=== PATIENT | female | born 1960 | race Two or more races ===

== ENCOUNTER 2024-08-12 14:36 | Inpatient (IN) | payer MEDICAID ==
[~2024-08-12] VITALS: Ht 154.9 cm; Wt 65.0 kg
--- NOTE | 2024-08-12 15:27 | DVH ---
EXAM: XY CHEST TWO VIEWS ROUTINE TECHNIQUE: Two radiographic views of the chest CLINICAL HISTORY: weakness COMPARISON: None Findings/Impression: Frontal and lateral chest radiographs demonstrate no acute osseous or superficial soft tissue abnorma lities. The trachea is midline. The cardiac silhouette and mediastinum are within normal limits. No pneumothorax, pleural effusions, or consolidations.
--- NOTE | 2024-08-12 15:30 | ED.PDOC ---
History of Present Illness HPI Comments 64 Y, with PMHX of asthma and arthrosclerosis, presents to the ED with CC of headache. Patient states that she has been having a headache with intermittent dizziness, palpitations, and vision loss for 2 weeks. Patient relays that her symptoms have gotten worse over the course of the week; and the heart palpi tations have been more frequent during the night. Patient denies any tobacco usage, ETOH, or illicit drugs. Patient denies, fever, chills, body aches, nasal congestion, or N/V/D. Chief Complaint: Headache Time Seen by MD: 15:00 Primary Care Provider: JU Reviewed Notes: Nurses Notes, Medications, Allergies Allergies: Coded Allergies: Codeine (Verified Allergy, Unknown, 08/12/24) Penicillins (Verified Allergy, Unknown, 08/12/24) Tramadol (Verified Allergy, Unknown, 08/12/24) Information Source: Patient Mode of Arrival: Ambulatory Severity: Mild Timing: Weeks Duration: Since onset Prehospital treatment: None Past Medical History PAST MEDICAL HISTORY: Asthma Surgical History: Denies all surgeries [employer] History: No Pertinent [employer] History Family History Family History: Unknown Social History Smoker: Non-Smoker Alcohol: Denies ETOH Use Drugs: Denies Drug Use Lives In: Home Constitutional: denies: chills, diaphoresis, fatigue, fever, malaise, sweats, weakness, others EENTM: reports: eye pain; denies: blurred vision, double vision, ear bleeding, ear discharge, ear drainage, ear pain, ear ringing, eye redness, hearing loss, mouth pain, mouth swelling, nasal discharge, nose bleeding, nose congestion, nose pain, photophobia, tearing, throat pain, throat swelling, voice changes, others Respiratory: denies: cough, hemoptysis, orthopnea, SOB at rest, shortness of breath, SOB with excertion, stridor, wheezing, others Cardiovascular: reports: palpitations; denies: chest pain, dizzy spells, diaphoresis, Dyspnea on exertion, edema, irregular heart beat, left arm pain, lightheadedness, PND, syncope, others Gastrointestinal: denies: abdomen distended, abdominal pain, blood streaked bowels, constipated, diarrhea, dysphagia, difficulty swallowing, hematemesis, melena, nausea, poor appetite, poor fluid intake, rectal bleeding, rectal pain, vomiting, others Genitourinary: denies: abnormal vagina bleeding, burning, dyspareunia, dysuria, flank pain, frequency, hematuria, incontinence, pain, , vagina discharge, urgency, others Neurological: reports: dizziness, headache; denies: fainting, left sided numbness, left sided weakness, numbness, paresthesia, pre-existing deficit, right sided numbness, right sided weakness, seizure, speech problems, tingling, tremors, weakness, others Musculoskeletal: denies: back pain, gout, joint pain, joint swelling, muscle pain, muscle stiffness, neck pain, others Integumetry: denies: bruises, change in color, change in hair/nails, dryness, laceration, lesions, lumps, rash, wounds, others Allergic/Immunocompromised: denies: Difficulty Healing, Frequent Infections, Hives, Itching, others Hematologic/Lymphatic: denies: anemia, blood clots, easy bleeding, easy bruising, swollen glands, others Endocrine: denies: excessive hunger, excessive sweating, excessive thirst, excessive urination, flushing, intolerance to cold, intolerance to heat, unexplained weight gain, unexplained weight loss, others Psychiatric: denies: anxiety, bipolar disorder, depression, hopeless, panic disorder, schizophrenia, sleepless, suicidal, others All Other Systems: Reviewed and Negative Physical Exam General Appearance: No Apparent Distress, Normal HEENT: Normal ENT Inspection, Pharynx Normal, TMs Normal Neck: Full Range of Motion, Non-Tender, Normal, Normal Inspection Respiratory: Chest Non-Tender, Lungs Clear, No Accessory Muscle Use, No Re spiratory Distress, Normal Breath Sounds Cardiovascular: No Edema, No JVD, No Murmur, No Gallop, Normal Peripheral Pulses, Regular Rate/Rhythm Breast Exam: Deferred Gastrointestinal: No Organomegaly, Non Tender, No Pulsatile Mass, Normal Bowel Sounds, Soft Genitalia: Deferred Pelvic: Deferred Rectal: Deferred Extremities: No calf tenderness, Normal capillary refill, Normal inspection, Normal range of motion, Non-tender, No pedal edema Musculoskeletal : Apperance: Normal Neurologic: Alert, inspection and testing supervisor II-XII nml as Tested, No Motor Deficits, Normal Affect, Normal Mood, No Sensory Deficits Cerebellar Function: Normal Reflexes: Normal Skin: Dry, Normal Color, Warm Lymphatic: No Adenopathy Was a procedure done? Was a procedure done?: No Differential Dx Considerations may include: STRESS, sleep deprivation, ETOH withdrawal X-Ray, Labs, Meds, VS Vital Signs Date Time Temp Pulse Resp B/P (MAP) Pulse Ox O2 Delivery O2 Flow Rate FiO2 08/12/24 14:45 98.3 86 20 145/89 (107) 97 Lab Test 08/12/24 16:15 08/12/24 15:10 Range/Units Troponin I High Sensitivity < 3 L 3 L </=34 ng/L White Blood Count 8.1 4.4-10.8 10^3/uL Red Blood Count 4.44 4.0-5.20 10^6/uL Hemoglobin 13.2 12.2-16.2 g/dL Hematocrit 39.8 36.0-46.0 % Mean Corpuscular Volume 89.8 80.0-100.0 fL Mean Corpuscular Hemoglobin 29.7 28.0-32.0 pg Mean Corpuscular Hemoglobin Concent 33.1 32.0-36.0 g/dL Red Cell Distribution Width 14.0 11.8-14.3 % Platelet Count 307 140-450 10^3/uL Mean Platelet Volume 7.6 6.9-10.8 fL Neutrophils (%) (Auto) 59.5 37.0-80.0 % Lymphocytes (%) (Auto) 26.5 10.0-50.0 % Monocytes (%) (Auto) 8.3 0.0-12.0 % Eosinophils (%) (Auto) 5.3 0.0-7.0 % Basophils (%) (Auto) 0.4 0.0-2.0 % Neutrophils # (Auto) 4.8 1.6-8.6 10 ^3/uL Lymphocytes # (Auto) 2.2 0.4-5.4 10 ^3/uL Monocytes # (Auto) 0.7 0-1.3 10 ^3/uL Eosinophils # (Auto) 0.4 0-0.8 10 ^3/uL Basophils # (Auto) 0 0-0.2 10 ^3/uL Nucleated Red Blood Cells 0.1 % Sodium Level 142 136-145 mmol/L Potassium Level 4.1 3.5-5.1 mmol/L Chloride Level 107 98-107 mmol/L Carbon Dioxide Level 29 20-31 mmol/L Anion Gap 6 5-15 Blood Urea Nitrogen 21 9-23 mg/dL Creatinine 0.79 0.550-1.02 mg/dL Glomerular Filtration Rate Calc 84 >90 mL/min BUN/Creatinine Ratio 26.6 H 10.0-20.0 Serum Glucose 90 74-106 mg/dL Calcium Level 10.2 8.7-10.4 mg/dL [facility] [id number] [place] [id number] Ph: [phone] DIAGNOSTIC IMAGING Diagnostic Imaging Report : [id number] Signed PATIENT: POLY QUICK ACCT: [id number] UNIT: [id number] : 1960 LOC: ER ROOM / BED: / AGE / SEX: 64 / F ADM STATUS: REG ER SERVICE 57 ORDERING PHYSICIAN: JOMAR RIDER MD PROCEDURE(s): CXR2 - CHEST TWO VIEWS ROUTINE REASON: weakness ORDER NUMBER(s): [id number], ACCESSION NUMBER(s): [id number] EXAM: XY CHEST TWO VIEWS ROUTINE TECHNIQUE: Two radiographic views of the chest CLINICAL HISTORY: weakness COMPARISON: None Findings/Impression: Frontal and lateral chest radiographs demonstrate no acute osseous or superficial soft tissue abnormalities. The trachea is midline. The cardiac silhouette and mediastinum are within normal limits. No pneumothorax, pleural effusions, or consolidations. ATED BY: DEIRDRE NAM DO DICTATED DATE/TIME: 08/12/24 152 SIGNED BY: DEIRDRE NAM DO SIGNED DATE/TIME: 08/12/24 1525 CC: Time of 1ST Reevaluation: 15:30 Reevaluation 1ST: Unchanged Patient Education/Counseling: Diagnosis, Treatment Family Education/Counseling: No Family Present Additional Information The following tests were ordered, and results were reviewed by me: CXR, EXG X3, TROPONIN X3, UA, CBC, CMP I reviewed and agreed with the following test results read by other providers: CXR I discussed treatment and results with medical personnel and: PATIENT Departure 1 Departure Time of Disposition: 17:33 (Patient was registered the same day under different name. Patient had a CT scan performed that was benign.Patient with dizziness near syncope and generally feeling unwell. We will admit patient for further workup) Impression: Primary Impression: Near syncope Additional Impression: Migraine Qualified Codes: G43.109 - Migraine with aura, not intractable, without status migrainosus Disposition: ADMITTED INPATIENT Admit to: Med Surg Condition: Serious Critical Care Note Critical Care Time?: No Stability Stability form required: No Heart Score Heart Score: Heart Score Response (Comments) Value History N/A 0 EKG N/A 0 Age N/A 0 Risk Factors N/A 0 Troponin N/A 0 Total 0 I personally scribed for JOMAR RIDER MD ([email or web address]) on 08/12/24 at 15:30. Electronically submitted by Ernestina Boudreaux ([email or web address]). I personally scribed for JOMAR RIDER MD ([email or web address]) on 08/12/24 at 15:45. Electronically submitted by Ernestina Boudreaux ([email or web address]). JOMAR RIDER MD Aug 12, 2024 15:30
[2024-08-12 15:37] LABS: Basophils # (auto) 0 10 ^3/uL (0-0.2); Basophils % (auto) 0.4 % (0.0-2.0); Eosinophils # (auto) 0.4 10 ^3/uL (0-0.8); Eosinophils % (auto) 5.3 % (0.0-7.0); Hematocrit 39.8 % (36.0-46.0); Hemoglobin 13.2 g/dL (12.2-16.2); Lymphocytes # (auto) 2.2 10 ^3/uL (0.4-5.4); Lymphocytes % (auto) 26.5 % (10.0-50.0); Mean Corpuscular Hemoglobin 29.7 pg (28.0-32.0); Mean Corpuscular Hgb Conc. 33.1 g/dL (32.0-36.0); Mean Corpuscular Volume 89.8 fL (80.0-100.0); Monocytes # (auto) 0.7 10 ^3/uL (0-1.3); Monocytes % (auto) 8.3 % (0.0-12.0); Neutrophils # (auto) 4.8 10 ^3/uL (1.6-8.6); Neutrophils % (auto) 59.5 % (37.0-80.0); Nucleated Red Blood Cells % 0.1 %; Platelet Count (auto) 307 10^3/uL (140-450); Red Blood Cells 4.44 10^6/uL (4.0-5.20); White Blood Cell 8.1 10^3/uL (4.4-10.8)
[2024-08-12 15:51] LABS: Chloride 107 mmol/L (98-107); Potassium 4.1 mmol/L (3.5-5.1); Sodium 142 mmol/L (136-145)
[2024-08-12 15:52] LABS: Anion Gap 6 (5-15); Carbon Dioxide 29 mmol/L (20-31)
[2024-08-12 15:53] LABS: Calcium 10.2 mg/dL (8.7-10.4)
[2024-08-12 15:58] LABS: BUN/Creatinine Ratio 26.6 (10.0-20.0); Blood Urea Nitrogen 21 mg/dL (9-23); Glucose 90 mg/dL (74-106)
--- NOTE | 2024-08-12 20:59 | DVHHPRES ---
History of Present Illness Resident Creating Document: BEN HARRISON RESIDENT History of Present Illness This is a 64 years old female with past medical history of bronchial asthma, aortic atherosclerosis, chronic low back pain presented to the ED with a chief complaint of pounding head, neck pain blurry vision and dizziness for 2 weeks. The patient she had diarrhea 2 weeks ago and it was loss for 3 days and her symptoms started after that. She felt dizzy when she was standing up from the sitting or lying position but did not mentioned any history of fall and also mentioned recent heart racing and unintentional 11 lb weight loss in last 1 month. She denies fever, night sweat, malaise, altered bowel habit, recent traveling or any abdominal pain or any sick contact. She is following primary care with [facility] and today she was referred from urgent care to the [facility] ED. She never had colonoscopy but mammography 2 years ago and it was normal and she had hysterectomy 2007 and stopped Pap test after that. Past Medical History Bronchial asthma, chronic low back pain, mild aortic atherosclerosis. Past Surgical History Hysterectomy in 2007, Lt rotator cuff surgery in 2011. Family History None Past Social History Nonsmoker, nonalcoholic and never tried any drugs. Review of Systems Constitutional: No: Fever, Chills, Sweats, Weakness, Malaise, Other Eyes: Pain, Vision change; No: Conjunctivae inflammation, Eyelid inflammation, Other, Redness ENT: No: Ear pain, Ear discharge, Nose pain, Nose discharge, Nose congestion, Mouth pain, Mouth swelling, Throat pain, Throat swelling, Other Respiratory: No: Cough, Dry, Shortness of breath, SOB with excertion, Wheezing, Hemoptysis, Pleuritic Pain, Sputum, Wheezing, Other Cardiovascular: Palpitations, Lt Headedness; No: Chest Pain, Orthopnea, Paroxysmal Noc. Dyspnea, Edema, Other Gastrointestinal: No: Nausea, Vomiting, Abdominal Pain, Diarrhea, Constipation, Melena, Hematochezia, Other Genitourinary: No Dysuria, No Frequency, No Incontinence, No Hematuria, No Retention, No Other Skin: No: Rash, Lesions, Jaundice, Bruising, Other Neurological: No: Weakness, Numbness, Incoordination, Change in speech, Confusion, Seizures, Other Allergies: Coded Allergies: Codeine (Verified Allergy, Unknown, 08/12/24) Penicillins (Verified Allergy, Unknown, 08/12/24) Tramadol (Verified Allergy, Unknown, 08/12/24) Medications Current Medications Medications Dose Ordered Sig/Spring Route Start Time Stop Time Status Last Admin Dose Admin Sodium Chloride 10 ml Q8HR IV 08/12/24 22:00 UNV Ondansetron HCl 4 mg Q4HP PRN IV 08/12/24 21:00 UNV Acetaminophen 650 mg Q6HP PRN PO 08/12/24 21:00 UNV Nitroglycerin 0.4 mg Q5MINP PRN SL 08/12/24 21:00 UNV Morphine Sulfate 2 mg Q30M PRN IV 08/12/24 21:00 UNV Exam Vital Signs Vital Signs Date Time Temp Pulse Resp B/P (MAP) Pulse Ox O2 Delivery O2 Flow Rate FiO2 08/12/24 20:30 98.0 77 16 141/73 (95) 98 98.0 Exam Physical examination: General Appearance: Alert, Oriented X3, Cooperative, No acute distress HEENT: Atraumatic, PERRLA, EOMI, Mucous membrane moist/pink Respiratory: Clear to auscultation, Normal air movement Cardiovascular: Regular rate, Normal S1, Normal S2, No murmurs, no chest wall tenderness Abdominal: Normal bowel sounds, Soft, No tenderness, No hepatospenomegaly, No masses Extremities: No clubbing, No cyanosis, No edema, Normal pulses, No tenderness/swelling Skin: No rashes, No breakdown, No significant lesion Neuro: Normal gait, Normal speech, Strength at 5/5 X4 ext, Normal tone, Sensation intact, grossly intact cranial nerves. Psych/Mental Status: Mental status NL, Mood NL Labs/Xrays Labs Test 08/12/24 16:15 08/12/24 15:10 Range/Units Troponin I High Sensitivity < 3 L </=34 ng/L White Blood Count 8.1 4.4-10.8 10^3/uL Red Blood Count 4.44 4.0-5.20 10^6/uL Hemoglobin 13.2 12.2-16.2 g/dL Hematocrit 39.8 36.0-46.0 % Mean Corpuscular Volume 89.8 80.0-100.0 fL Mean Corpuscular Hemoglobin 29.7 28.0-32.0 pg Mean Corpuscular Hemoglobin Concent 33.1 32.0-36.0 g/dL Red Cell Distribution Width 14.0 11.8-14.3 % Platelet Count 307 140-450 10^3/uL Mean Platelet Volume 7.6 6.9-10.8 fL Neutrophils (%) (Auto) 59.5 37.0-80.0 % Lymphocytes (%) (Auto) 26.5 10.0-50.0 % Monocytes (%) (Auto) 8.3 0.0-12.0 % Eosinophils (%) (Auto) 5.3 0.0-7.0 % Basophils (%) (Auto) 0.4 0.0-2.0 % Neutrophils # (Auto) 4.8 1.6-8.6 10 ^3/uL Lymphocytes # (Auto) 2.2 0.4-5.4 10 ^3/uL Monocytes # (Auto) 0.7 0-1.3 10 ^3/uL Eosinophils # (Auto) 0.4 0-0.8 10 ^3/uL Basophils # (Auto) 0 0-0.2 10 ^3/uL Nucleated Red Blood Cells 0.1 % Sodium Level 142 136-145 mmol/L Potassium Level 4.1 3.5-5.1 mmol/L Chloride Level 107 98-107 mmol/L Carbon Dioxide Level 29 20-31 mmol/L Anion Gap 6 5-15 Blood Urea Nitrogen 21 9-23 mg/dL Creatinine 0.79 0.550-1.02 mg/dL Glomerular Filtration Rate Calc 84 >90 mL/min BUN/Creatinine Ratio 26.6 H 10.0-20.0 Serum Glucose 90 74-106 mg/dL Calcium Level 10.2 8.7-10.4 mg/dL Assessment/Plan Assessment/Plan Assessment and plan: # Near syncopal event likely due to dehydration # Rule out intracranial pathology, aortic stenosis # Rule out malignancy, Hyperthyroidism - Ordered orthostatic vital, CT head without contrast, carotid Doppler and echo - Ordered TSH, FOBT, CEA, AFP and CA 19- 9 - Patient was given 1 L IV bolus - Monitor vitals closely. # Prediabetes, HbA1C 5.9 - Counseled the patient regarding low carb diet, lifestyle modification and physical exercise # Chronic bronchial asthma - Continue home meds. Goal of care discussed with the patient for more than 17 minutes full code Plan of treatment discussed with Dr. Hassan Plan discussed with: Patient, Other My Orders Orders - FARDOUS,BEN RESIDENT Procedure Category Date Status Time Admit ADMIT 08/12/24 Transmitted 20:47 Code Status CODE 08/12/24 Transmitted 20:47 Sodium Chloride Lock PHA 08/12/24 Logged (Saline Lock Ns) 22:00 Ondansetron Hcl PHA 08/12/24 Logged (Zofran) 21:00 Complete Blood Count LAB 08/13/24 Verified 04:00 Comprehensive LAB 08/13/24 Verified Metabolic Panel 04:00 Echo 2d Mode Cardiac US 08/12/24 Logged DOP 20:47 Carotid Duplx W Color US 08/12/24 Logged DOP 20:47 Acetaminophen Tablet PHA 08/12/24 Logged (Tylenol Tablet) 21:[address] [facility] 08/12/24 Logged Sublingual (Ntrostat 21:00 Morphine Sulfate PHA 08/12/24 Logged Injection 21:00 Oxygen By Nasal RT 08/12/24 Transmitted Cannula 20:47 Stat Ekg For Chest [facility] 08/12/24 In Process Pain 20:47 Notify Of Changes [facility] 08/12/24 In Process From Base 20:47 Warp Tester For [facility] 08/12/24 In Process 24 Hours 20:47 Emergency Dysrhythmia [facility] 08/12/24 In Process Protocol 20:47 Rhythm Strips Once [facility] 08/12/24 In Process Every Shift 20:[address] 08/12/24 Logged 20:51 Thyroid Stimulating LAB 08/12/24 Logged Hormone 20:51 Stool Occult Blood LAB 08/12/24 Logged 20:51 Carcinoembryonic LAB 08/12/24 Logged Antigen 20:51 Afp Serum Tumor Marker LAB 08/12/24 Logged 20:51 Carbohydrate Antigen LAB 08/12/24 Logged 19-9 Orthostatic Vital ED NURSING 08/12/24 Transmitted Signs Urinalysis LAB 08/12/24 Logged 20:53 Drug Screen LAB 08/12/24 Logged 20:53 Comprehensive LAB 08/12/24 Verified Hepatitis Panel 20:54 Date of Service: Aug 12, 2024 Billing Provider: MERISSA HASSAN MD Common Visit Codes: [id number] INP/OBS CARE (HIGH) BEN HARRISON RESIDENT Aug 12, 2024 20:59 MERISSA HASSAN MD Aug 13, 2024 09:28
[2024-08-12] MEDS ORDERED: NITROGLYCERIN 0.4 MG SL TAB SL PRN (21:00)
[2024-08-12] MEDS ORDERED: MORPHINE SULFATE INJ 2 MG/ml SYRG IV PRN (21:00)
--- NOTE | 2024-08-12 21:30 | DVH ---
EXAM: CT HEAD WITHOUT CONTRAST HISTORY: Dizziness COMPARISON: None TECHNIQUE: Axial images were obtained and reformatted in coronal and sagittal planes. All CT scans at this medical facility are performed using dose modulation techniques as appropriate t o a performed exam including the following: Automated exposure control was utilized; adjustment of th e MA and/or KV according to patient size; and use of iterative reconstruction technique. CT Dose: CTDI volume is 48.75 mGy. Dose-length product is 684.24 mGy*cm FINDINGS: Supratentorial Region: No evidence for large acute territorial ischemia. No intracranial hemorrhage is noted. Posterior Fossa: No acute abnormality. Brainstem: Unremarkable. Sellar/Suprasellar Region: Unremarkable. Ventricles, Cisterns, Sulci: Age-appropriate. Orbits: Unremarkable. Paranasal Sinuses: Trace fluid in the left sphenoid sinus. Mastoid Air Cells: Unremarkable. Vasculature: Unremarkable. Bones/Soft Tissues: No acute abnormality. Other: None. IMPRESSION: 1. No acute intracranial process. 2. Trace fluid in the left sphenoid sinus may reflect acute sinusitis.
[2024-08-13] MEDS: SODIUM CHLORIDE 0.9% 1,000 ML IV ONE (03:17)
[2024-08-13] MEDS: SODIUM CHLOR 0.9% PF (SALINE LOCK) 10ML VIAL/SYR IV SCH (03:18)
[2024-08-13 03:41] LABS: COVID19 ANTIGEN SOFIA FIA NEGATIVE (NEGATIVE); Rapid Influenza A Negative (Negative); Rapid Influenza B Negative (Negative)
[2024-08-13] MEDS: ACETAMINOPHEN 325 MG TAB PO PRN (04:35)
[2024-08-13 06:54] LABS: Alanine Aminotransferase 18 U/L (7-40); Albumin 4.2 g/dL (3.2-4.8); Alkaline Phosphatase 78 U/L (46-116); Anion Gap 7 (5-15); Aspartate Aminotransferase 16 U/L (13-40); BUN/Creatinine Ratio 20.3 (10.0-20.0); Blood Urea Nitrogen 16 mg/dL (9-23); Calcium 9.6 mg/dL (8.7-10.4); Carbon Dioxide 25 mmol/L (20-31); Glucose 102 mg/dL (74-106); Sodium 142 mmol/L (136-145)
[2024-08-13 06:55] LABS: Bilirubin, Total 0.5 mg/dL (0.2-1.0); Total Protein 6.8 g/dL (5.7-8.2)
[2024-08-13 06:59] LABS: Chloride 110 mmol/L (98-107); Potassium 3.5 mmol/L (3.5-5.1)
[2024-08-13 07:04] LABS: Basophils # (auto) 0.1 10 ^3/uL (0-0.2); Basophils % (auto) 0.6 % (0.0-2.0); Eosinophils # (auto) 0.4 10 ^3/uL (0-0.8); Eosinophils % (auto) 4.5 % (0.0-7.0); Hematocrit 38.7 % (36.0-46.0); Hemoglobin 12.8 g/dL (12.2-16.2); Lymphocytes # (auto) 2.8 10 ^3/uL (0.4-5.4); Lymphocytes % (auto) 30.5 % (10.0-50.0); Mean Corpuscular Hemoglobin 30.3 pg (28.0-32.0); Monocytes # (auto) 0.8 10 ^3/uL (0-1.3); Monocytes % (auto) 8.6 % (0.0-12.0); Neutrophils # (auto) 5.1 10 ^3/uL (1.6-8.6); Neutrophils % (auto) 55.8 % (37.0-80.0); Nucleated Red Blood Cells % 0.1 %; Platelet Count (auto) 280 10^3/uL (140-450); Red Blood Cells 4.21 10^6/uL (4.0-5.20); White Blood Cell 9.2 10^3/uL (4.4-10.8)
[2024-08-13 07:57] LABS: Urine Bacteria None Seen /hpf (None Seen)
[2024-08-13 08:00] VITALS: PULSE 62; RESP 17; O2SAT 97
[2024-08-13 08:21] LABS: Amphetamine Screen, Urine Neg (NEGATIVE); Barbiturate Scree,Urine Neg (NEGATIVE); Benzodiazephine Screen, Urine Neg (NEGATIVE); Cannabinoid Screen, Urine Neg (NEGATIVE); Cocaine Screen, Urine Neg (NEGATIVE); Opiate Scree,Urine Neg (NEGATIVE); Phencyclidine Screen, Urine Neg (NEGATIVE)
[2024-08-13] MEDS: GASTROGRAFIN 30 ML SOL ONE (08:22)
[2024-08-13 08:23] LABS: Urine Blood Negative /uL (Negative); Urine Clarity Clear (Clear); Urine Color Light-Yellow (Yellow); Urine Mucus FEW (None Seen); Urine Protein, UAD Negative (Negative); Urine Specific Gravity 1.018 (1.001-1.035); Urine Urobilinogen Normal (Negative); Urine WBC 2 /hpf (0 - 5); Urine pH 6.5 (5.0-9.0)
[2024-08-13] MEDS: ONDANSETRON HCL 4 MG/2 ML VIAL IV PRN (09:01)
[2024-08-13] MEDS: KETOROLAC TROMETH 30 MG/ML 1ML VIAL IV ONE ×2 (09:01→15:29)
[2024-08-13] MEDS: PANTOPRAZOLE 40 MG TAB PO ONE (09:02)
--- NOTE | 2024-08-13 10:02 | DVH ---
Carotid Duplex Date: 08/13/2024 08:46 AM Clinical History: Dizziness Comparison: None Technique: Duplex Doppler evaluation of the extracranial carotid and vertebral arteries including color Doppler and spectral/pulsed waveform analysis was performed. Findings: RIGHT SIDE: The peak systolic velocities are 81 cm/s in the distal CCA and 108 cm/s in the proximal ICA.The ICA/C CA ratio is 1.3. The external carotid artery is patent with peak systolic velocity of 82 cm/s proximally. There is appropriate antegrade flow in the right vertebral artery. LEFT SIDE: The peak systolic velocities are 72 cm/s in the distal CCA and 111 cm/s in the proximal ICA.. The IC A/CCA ratio is 1.5. The external carotid artery is patent with peak systolic velocity of 54 cm/s proximally. There is appropriate antegrade flow in the left vertebral artery. IMPRESSION: No hemodynamically significant stenosis noted in the right carotid system. No hemodynamically significant stenosis noted in the left carotid system. Reference: Radiology 2003; 229:[id number]
[2024-08-13] MEDS: IOHEXOL 300 MG/ML 100ML BOTTLE IJ ONE (10:23)
--- NOTE | 2024-08-13 10:59 | DVH ---
Exam: CT CT CHST AB PLV W CON-ORAL IV History: unexplained wt loss/ RESIDENT WANTS ORAL AND IV CON Comparison Study: None available at time of dictation. Technique: Multidetector spiral CT of the chest, abdomen and pelvis was performed from lower neck to pubic symphysis. 100 cc Omni 300 intravenous contrast was administered during this examination. Port al venous imaging was obtained. Axial, coronal and sagittal multiplanar reformats were performed by the technologist on a separate workstation. Radiation Dose : Chest/Abdomen/Pelvis: CTDIvol 8 mGy, DLP 543.31 mGy*cm. Findings: Lower neck: Normal thyroid. Lungs: No focal consolidation, pleural effusion or pneumothorax. Heart/Vascular Structures: Normal heart size. No pericardial effusion. Lymph Nodes: No adenopathy Pleura: No pleural effusion or significant pneumothorax. Liver: Few subcentimeter hepatic cysts. Gallbladder and biliary Tree: Unremarkable Spleen: Unremarkable Pancreas: The pancreas is normal in appearance without focal lesions or abnormal enhancement. Adrenal Glands: Unremarkable Kidneys: Kidneys demonstrate normal symmetric enhancement without focal lesions, calculi or hydroneph rosis. Bladder: Unremarkable Bowel: The stomach is grossly normal in appearance. Small bowel and colon are normal in caliber and d istribution. The appendix is not visualized; however, no secondary findings of acute appendicitis id entified. Ascites: Absent Lymphadenopathy: No mesenteric, retroperitoneal or periportal lymphadenopathy. Abdominal wall and Mesentery: Unremarkable. Vasculature: The visualized abdominal aorta is normal in size and caliber. Abdominal and pelvic vess els demonstrate normal enhancement. Pelvic Organs: The uterus is surgically absent. Musculoskeletal: Grade 1 anterolisthesis of L4 on L5. IMPRESSION: 1. No acute findings involving the chest, abdomen or pelvis. Few tiny hepatic cysts. HS:Y
[2024-08-13] MEDS ORDERED: AUG875T PO (15:29)
[2024-08-13 15:40] VITALS: BP 138/66; PULSE 66; PULSE 68; RESP 16; TEMP 97.8; O2SAT 100; O2SAT 97
[2024-08-13 16:00] VITALS: BP 146/78; PULSE 76; RESP 20; TEMP 97.9; O2SAT 97
--- NOTE | 2024-08-13 18:52 | DVHDSRES ---
Discharge Summary Date of Admission Resident Creating Document: BEN HARRISON RESIDENT Aug 12, 2024 at 20:47 Date of Discharge: Aug 13, 2024 Admitting Diagnosis Headache Labs/Diagnostic Data: Laboratory Results Test 08/13/24 07:45 08/13/24 06:00 08/13/24 03:02 08/12/24 21:00 Urine Color Light-yellow (Yellow) Urine Clarity Clear (Clear) Urine pH 6.5 (5.0-9.0) Urine Specific [place] 1.018 (1.001-1.035) Urine Protein Negative (Negative) Urine Ketones Negative (Negative) Urine Blood Negative /uL (Negative) Urine Nitrite Negative (Negative) Urine Bilirubin Negative (Negative) Urine Urobilinogen Normal mg/dL (Negative) Urine Leukocyte Esterase 1+ /uL (Negative) Urine RBC 1 /hpf (0 - 4) Urine WBC 2 /hpf (0 - 5) Urine Squamous Epithelial Cells Few /hpf (<5) Urine Bacteria None seen /hpf (None Seen) Urine Mucus Few (None Seen) Urine Glucose 2+ mg/dL (Normal) Urine Opiates Screen Neg (NEGATIVE) Urine Fentanyl Screen Neg (NEGATIVE) Urine Barbiturates Screen Neg (NEGATIVE) Urine Phencyclidine Screen Neg (NEGATIVE) Urine Amphetamines Screen Neg (NEGATIVE) Urine Benzodiazepines Screen Neg (NEGATIVE) Urine Cocaine Screen Neg (NEGATIVE) Urine Cannabinoids Screen Neg (NEGATIVE) White Blood Count 9.2 10^3/uL (4.4-10.8) Red Blood Count 4.21 10^6/uL (4.0-5.20) Hemoglobin 12.8 g/dL (12.2-16.2) Hematocrit 38.7 % (36.0-46.0) Mean Corpuscular Volume 92.0 fL (80.0-100.0) Mean Corpuscular Hemoglobin 30.3 pg (28.0-32.0) Mean Corpuscular Hemoglobin Concent 33.0 g/dL (32.0-36.0) Red Cell Distribution Width 14.0 % (11.8-14.3) Platelet Count 280 10^3/uL (140-450) Mean Platelet Volume 7.7 fL (6.9-10.8) Neutrophils (%) (Auto) 55.8 % (37.0-80.0) Lymphocytes (%) (Auto) 30.5 % (10.0-50.0) Monocytes (%) (Auto) 8.6 % (0.0-12.0) Eosinophils (%) (Auto) 4.5 % (0.0-7.0) Basophils (%) (Auto) 0.6 % (0.0-2.0) Neutrophils # (Auto) 5.1 10 ^3/uL (1.6-8.6) Lymphocytes # (Auto) 2.8 10 ^3/uL (0.4-5.4) Monocytes # (Auto) 0.8 10 ^3/uL (0-1.3) Eosinophils # (Auto) 0.4 10 ^3/uL (0-0.8) Basophils # (Auto) 0.1 10 ^3/uL (0-0.2) Nucleated Red Blood Cells 0.1 % Sodium Level 142 mmol/L (136-145) Potassium Level 3.5 mmol/L (3.5-5.1) Chloride Level 110 mmol/L (98-107) Carbon Dioxide Level 25 mmol/L (20-31) Anion Gap 7 (5-15) Blood Urea Nitrogen 16 mg/dL (9-23) Creatinine 0.79 mg/dL (0.550-1.02) Glomerular Filtration Rate Calc 84 mL/min (>90) BUN/Creatinine Ratio 20.3 (10.0-20.0) Serum Glucose 102 mg/dL (74-106) Calcium Level 9.6 mg/dL (8.7-10.4) Total Bilirubin 0.5 mg/dL (0.2-1.0) Aspartate Amino Transferase (AST) 16 U/L (13-40) Alanine Aminotransferase (ALT) 18 U/L (7-40) Alkaline Phosphatase 78 U/L (46-116) Total Protein 6.8 g/dL (5.7-8.2) Albumin 4.2 g/dL (3.2-4.8) Influenza Type A Antigen Negative (Negative) Influenza Type B Antigen Negative (Negative) SARS-CoV-2 Antigen (Rapid) Negative (NEGATIVE) Hemoglobin A1c 5.9 % A1C (<5.7) B-Type Natriuretic Peptide 14.88 pg/mL (0-100) Carcinoembryonic Antigen 1.00 ng/mL (<=5.0) Thyroid Stimulating Hormone (TSH) 0.69 uIU/mL (0.55-4.78) HIV (1&2) Antibody Negative (Negative) Test 08/12/24 16:15 Troponin I High Sensitivity < 3 ng/L (</=34) Other Laboratory Tests 08/13/24 06:00 Brief Hx & Hospital Course: This is a 64 years old female with past medical history of bronchial asthma, aortic atherosclerosis, chronic low back pain presented to the ED with a chief complaint of pounding head, neck pain blurry vision and dizziness for 2 weeks. The patient she had diarrhea 2 weeks ago and it was loss for 3 days and her symptoms started after that. She felt dizzy when she was standing up from the sitting or lying position but did not mentioned any history of fall and also mentioned recent heart racing and unintentional 11 lb weight loss in last 1 month. She denies fever, night sweat, malaise, altered bowel habit, recent traveling or any abdominal pain or any sick contact. She is following primary care with [facility] and today she was referred from urgent care to the [facility] ED. She never had colonoscopy but mammography 2 years ago and it was normal and she had hysterectomy 2007 and stopped Pap test after that. Hospital course: CXR showed no acute osseous or superficial soft tissue abnormalities. Head CT showed no acute intracranial process, trace fluid in the left sphenoid sinus may reflect acute sinusitis. Carotid ultrasound showed no hemodynamically significant stenosis in the right or left carotid systems. CT chest, abdomen and pelvis with IV and oral contrast showed no acute findings involving the chest, abdomen or pelvis. Few tiny hepatic cysts. CBC and BMP was unremarkable, COVID, influenza and HIV were also negative. On the day of discharge, patient appeared well and had stable vital signs. Patient was instructed to follow up with her PCP at her earliest convenience. Her hospital course was uncomplicated. Patient was sent Augmentin 875 mg b.i.d. for 7 days for her acute sinusitis. General Appearance: Alert, Oriented X3, Cooperative, No acute distress HEENT: Atraumatic, PERRLA, EOMI, Mucous membrane moist/pink Respiratory: Clear to auscultation, Normal air movement Cardiovascular: Regular rate, Normal S1, Normal S2, No murmurs, no chest wall tenderness Abdominal: Normal bowel sounds, Soft, No tenderness, No hepatospenomegaly, No masses Extremities: No clubbing, No cyanosis, No edema, Normal pulses, No tenderness/swelling Skin: No rashes, No breakdown, No significant lesion Neuro: Normal gait, Normal speech, Strength at 5/5 X4 ext, Normal tone, Sensation intact, grossly intact cranial nerves. Psych/Mental Status: Mental status NL, Mood NL Condition at Discharge: Good Final Diagnosis/Problems List acute sinusitis migraine ruled out near syncope personal hx of cervical cancer, s/p hystrectomy (2007) asthma, currently not in exacerbation Discharge Disposition: Home Discharge Instruct/Medications Diet: Cardiac 2g Na,low cholest Activity: No Restrictions, As Tolerated Follow Up/Referral: please follow up with pcp in 1-2 weeks Medications: augmentin 875mg twice a day for 7 days Discharge Statement: "Patient was advised to return to the ER or call 911 if any headaches, dizziness, shortness of breath, chest pain, abdominal pain, bleeding, fevers, or worsening of medical condition. Patient was counseled about treatment plan, medications, possible side effects, patientverbalized understanding. All questions were answered to the best of my ability. This discharge took greater then 30 minutes in planning, reviewing documentation, counseling the patient, and discussing with other team members." ASSESSMENT ASSESSMENT Assessment acute sinusitis migraine ruled out near syncope personal hx of cervical cancer, s/p hystrectomy (2007) asthma, currently not in exacerbation Date of Service: Aug 13, 2024 Billing Provider: JW GONZALEZ MD Common Visit Codes: 95312-DAH/OBS DISCH DAY >30min Coding Comment Comment Attending Attestation I saw and evaluated the patient. I reviewed the residents note and agree with findings and plan as documented in the residents note except as documented below. STEPHON NIX RESIDENT Aug 13, 2024 18:52 JW GONZALEZ MD Aug 14, 2024 08:31
[2024-08-13 20:00] VITALS: PULSE 66; RESP 18; O2SAT 97
[2024-08-13 21:00] VITALS: BP 122/58; PULSE 68; RESP 18; TEMP 98.2; O2SAT 97
[2024-08-14 01:00] VITALS: BP 118/61; PULSE 62; RESP 17; TEMP 98; O2SAT 96
[2024-08-14 05:00] VITALS: BP 114/53; PULSE 78; RESP 18; TEMP 97.7; O2SAT 97
[2024-08-14] MEDS: PANTOPRAZOLE 40 MG TAB PO SCH (05:42)
[2024-08-14 07:54] VITALS: BP 114/53; PULSE 78; RESP 18; TEMP 97.7; O2SAT 97
[2024-08-14 08:05] VITALS: PULSE 58; RESP 20; O2SAT 98
[2024-08-14 08:34] LABS: Hepatitis B Surface Antigen Negative (Negative)
[2024-08-14 08:53] VITALS: BP 150/71; PULSE 58; RESP 20; TEMP 97.9; O2SAT 98
[2024-08-14 08:56] VITALS: BP 150/71; PULSE 58; RESP 20; TEMP 97.9; O2SAT 98
[2024-08-14 08:57] LABS: Hepatitis B Core Total AB Negative (Negative)
[2024-08-14 09:18] LABS: Hepatitis A Ab IgM Negative; Hepatitis B Core IgM Negative (Negative); Hepatitis C Antibody Negative (Negative)
[2024-08-14 11:32] LABS: Hepatitis A Total Antibody Negative (Negative); Hepatitis B Surface Antibody Negative (Negative); Hepatitis B Surface Antigen Negative (Negative); Hepatitis C Antibody Negative (Negative)
--- NOTE | 2024-08-14 19:42 | DVHPNRES ---
Progress Note Date Seen: Aug 14, 2024 Resident Creating Document: STEPHON NIX RESIDENT Medical Necessity Reason Pt with a Central, PICC or Fol: No Subjective Review of Systems This is a 64 years old female with past medical history of bronchial asthma, aortic atherosclerosis, chronic low back pain presented to the ED with a chief complaint of pounding head, neck pain blurry vision and dizziness for 2 weeks. The patient she had diarrhea 2 weeks ago and it was loss for 3 days and her symptoms started after that. She felt dizzy when she was standing up from the sitting or lying position but did not mentioned any history of fall and also mentioned recent heart racing and unintentional 11 lb weight loss in last 1 month. She denies fever, night sweat, malaise, altered bowel habit, recent traveling or any abdominal pain or any sick contact. She is following primary care with [facility] and today she was referred from urgent care to the [facility] ED. She never had colonoscopy but mammography 2 years ago and it was normal and she had hysterectomy 2007 and stopped Pap test after that. Objective vital signs Vital Sign Date Time Temp Pulse Resp B/P (MAP) Pulse Ox O2 Delivery O2 Flow Rate FiO2 08/14/24 08:56 97.9 58 20 150/71 (97) 98 97.9 08/14/24 08:05 Room Air* 0 21 Total Intake and Output 08/13/24 08/13/24 08/14/24 15:00 23:00 07:00 Intake Total 1000 ml 210 ml 1200 ml Balance 1000 ml 210 ml 1200 ml Examination General Appearance: Alert, Oriented X3, Cooperative, No acute distress HEENT: Atraumatic, PERRLA, EOMI, Mucous membrane moist/pink Respiratory: Clear to auscultation, Normal air movement Cardiovascular: Regular rate, Normal S1, Normal S2, No murmurs, no chest wall tenderness Abdominal: Normal bowel sounds, Soft, No tenderness, No hepatospenomegaly, No masses Extremities: No clubbing, No cyanosis, No edema, Normal pulses, No tenderness/swelling Skin: No rashes, No breakdown, No significant lesion Neuro: Normal gait, Normal speech, Strength at 5/5 X4 ext, Normal tone, Sensation intact, grossly intact cranial nerves. Psych/Mental Status: Mental status NL, Mood NL laboratory and microbiology Laboratory Tests 08/13/24 06:00 Test 08/13/24 06:00 Range/Units Serum Glucose 102 74-106 mg/dL Problem List/Assessment/Plan Problem List/Assessment/Plan Acute on chronic sinusitis migraine ruled out near syncope - CXR showed no acute osseous or superficial soft tissue abnormalities. - Head CT showed no acute intracranial process, trace fluid in the left sphenoid sinus may reflect acute sinusitis. - Carotid ultrasound showed no hemodynamically significant stenosis in the right or left carotid systems. - CT chest, abdomen and pelvis with IV and oral contrast showed no acute findings involving the chest, abdomen or pelvis. Few tiny hepatic cysts - IV toradol 15mg bid personal hx of cervical cancer, s/p hystrectomy (2007) - AFP, CEA, CA19-9 negative asthma, currently not in exacerbation Plan discussed with Dr. Gonzalez Goals of care: Full code; discussed for >15 mins on 08/13/24 Plan discussed with: Patient, Other (RN) Date of Service: Aug 15, 2024 Billing Provider: JW GONZALEZ MD Common Visit Codes: [id number] INP/OBS CARE(HIGH) STEPHON NIX RESIDENT Aug 14, 2024 19:42 JW GONZALEZ MD Aug 16, 2024 17:36
== END 2024-08-14 09:05 | disposition home or self-care (01) | DRG 113 ==
LOC: ER 14:36 → TELE 20:47 → TELE-WESTW 08-13 14:43
PROVIDERS: ADMIT Student in an Organized Health Care Education/Training Program; ATTEND Student in an Organized Health Care Education/Training Program
DX: J01.90 Acute sinusitis, unspecified (principal); G43.909 Migraine, unspecified, not intractable, without status migrainosus; J45.909 Unspecified asthma, uncomplicated; Z20.822 Contact with and (suspected) exposure to COVID-19; H54.7 Unspecified visual loss; G89.29 Other chronic pain; Z85.41 Personal history of malignant neoplasm of cervix uteri; Z79.899 Other long term (current) drug therapy
CPT/HCPCS: 36415; 70450; 71046; 71260; 74177; 80048; 80053; 80074; 80307; 81001; 82105; 82378; 83036; 83880; 84443; 84484; 85025; 86038; 86301; 86703; 86704; 86706; 86708; 86803; 87340; 87426; 87804; 93886; G0378; J1885; J2405